=== PATIENT | female | born 1990 | race Hispanic/Latino ===

== ENCOUNTER 2016-12-10 05:55 | Emergency (ER) | payer MEDICAID ==
[2016-12-10 06:04] VITALS: BMI 33.2
[2016-12-10 06:09] VITALS: RESP 18
--- NOTE | 2016-12-10 07:34 | ED PDOC ---
Arrival/HPI - General Chief Complaint: Anxiety Time Seen by Provider: 12/10/16 06:06 Historian: Patient - History of Present Illness Narrative History of Present Illness (Text): 12/10/16 07:30 Patient is a 26 yo female reports past medical history of anxiety, not taking medication currently, presents to ED stating 2 day history of "tightness in my head NOT PAIN". States she "woke up with this 2 days ago. Denies chest pain or shortness of breath but states "its making me anxious" although she cannot be more descriptive of this and states she does not have chest pain or shortness of breath. Denies trauma. Denies fever. Denies numbness or weakness. Denies calf pain or swelling. Denies pleuritic chest pain. States she saw her PMD 2 days ago who prescribed her an unknown headache medication which she did not take. She states she went to [facility] ER 2 days ago and they gave her Reglan and Benadryl and she states this gave her no relief. Not a "headache". Denies congestion or sore throat or cough. Denies dental or neck pain. Denies facial swelling. States she had a CT scan of head at [facility] 2 days ago and states that "it was fine". She does not wish to take any medication for her symptoms stating she doesn't like to take medication. Denies suicidal or homicidal ideation. Past Medical History - Psychiatric Hx Substance Use: No Family/Social History Family/Social History: Unknown Family HX Smoking Status: y Hx Alcohol Use: No Hx Substance Use: No Allergies/Home Meds Allergies/Adverse Reactions: Allergies metoclopramide [From Reglan] Allergy (Verified 12/10/16 06:12) RASH Home Medications: Home Meds Medication Instructions Recorded Confirmed No Known Home Med 12/10/16 12/10/16 Review of Systems - Review of Systems Constitutional: absent: Fatigue, Fevers Eyes: absent: Vision Changes, Photophobia, Eye Pain ENT: absent: Hearing Changes Respiratory: absent: SOB Cardiovascular: absent: Chest Pain, Palpitations Gastrointestinal: absent: Abdominal Pain Genitourinary Female: absent: Dysuria, Frequency, Hematuria Musculoskeletal: absent: Back Pain, Neck Pain Skin: absent: Rash Neurological: Other (head "pressure"). absent: Dizziness, Focal Weakness, Gait Changes, Speech Changes, Facial Droop, Seizure Psychiatric: Anxiety. absent: Depression, Suicidal Ideation Physical Exam - Physical Exam Narrative Physical Exam (Text): Head: Atraumatic. Normocephalic. Eyes: PERRL. EOMI. Conjunctivae are not pale. ENT: Mucous membranes are moist and intact. Oropharynx is clear and symmetric. Neck: Supple. Full ROM. No JVD. No lymphadenopathy. Cardiovascular: Regular rate. Regular rhythm. No murmurs, rubs, or gallops. Distal pulses are 2+ and symmetric. Pulmonary/Chest: No evidence of respiratory distress. Clear to auscultation bilaterally. No wheezing, rales or rhonchi. Abdominal: Soft and non-distended. There is no tenderness. No rebound, guarding, or rigidity. No organomegaly. Good bowel sounds. Back: No CVA tenderness. Extremities: No edema. No cyanosis. No clubbing. Full range of motion in all extremities. No calf tenderness. Skin: Skin is warm and dry. No petechiae. No purpura. Neurological: Alert, awake, and oriented to person, place, time, and situation. Normal speech. Psychiatric: Good eye contact. Normal interaction, affect, and behavior. Vital Signs Reviewed: Yes Vital Signs Temp Pulse Resp BP Pulse Ox 12/10/16 09:00 98 F 63 18 123/73 100 12/10/16 07:48 61 18 115/63 100 12/10/16 06:05 97.3 F L 74 18 120/68 99 Temperature: Afebrile Appearance: Positive for: Well-Appearing, Non-Toxic Pain Distress: Mild Mental Status: Positive for: Alert and Oriented X 3 Medical Decision Making ED Course and Treatment: Patient on examination is alert, oriented, denies suicidal or homicidal ideation but reports anxiety and difficulty sleeping for past two days. No trauma. No fever. She reports negative ct scan of head at [facility] two days ago. No thyromegaly noted. NO fever noted. No hypoxia. No chest pain. No calf pain. No prior hx of PE or dvt. No pleuritic discomfort. She insists she does not have "headache" but "tightness". No facial edema or facial droop noted. Visual acuity and visual allen intact. She states PMD prescribed medication she did not take. She does not wish to take tylenol or motrin after I reviewed risks/side effects and indications. She is neurologically intact after serial exams. PES consulted due to anxiety, patient reports to PES that she does not wish to be admitted for mental health reasons, patient confirms no suicidal or homicidal ideation. She subsequently is agreeable to take a xanax in ED, I again reviewed potential side effects. As no pain, neuro intact, no fever, no respiratory distress, no psychosis or suicidal/homicidal ideation, will discharge with recommendations provided by PES personnel, follow-up instructions given to patient. Please note patient adamantly denies shortness of breath to me despite triage chief complaint. She has been examined multiple times in ED with no complaint of SOB, no hypoxia, no chest pain, no wheezing. - Lab Interpretations Lab Results: 12/10/16 07:45 12/10/16 07:45 Lab Results 12/10/16 07:45: Alcohol, Quantitative < 10 12/10/16 07:45: Salicylates < 1 L, Acetaminophen < 10.0 L 12/10/16 07:45: Sodium 135, Potassium 3.8, Chloride 104, Carbon Dioxide 24, Anion Gap 11, BUN 11, Creatinine 0.6, Est GFR ( Amer) > 60, Est GFR (Non- Af Amer) > 60, Random Glucose 84, Calcium 9.2, Total Bilirubin 1.1, AST 20, ALT 25, Alkaline Phosphatase 62, Total Creatine Kinase 90, Total Protein 7.6, Albumin 4.3, Globulin 3.2, Albumin/Globulin Ratio 1.3 12/10/16 07:45: WBC 8.1, RBC 4.69, Hgb 14.6, Hct 42.2, MCV 90.0, MCH 31.1, MCHC 34.6, RDW 12.4, Plt Count 293, MPV 9.9, Gran % 50.9, Lymph % (Auto) 38.4 H, [place] % (Auto) 7.7 H, Eos % (Auto) 2.6, Baso % (Auto) 0.4, Gran # 4.10, Lymph # 3.1, [place] # 0.6, Eos # 0.2, Baso # 0.03 12/10/16 07:37: Urine Opiates Screen Negative, Urine Methadone Screen Negative, Ur Barbiturates Screen Negative, Ur Phencyclidine Scrn Negative, Ur Amphetamines Screen Negative, U Benzodiazepines Scrn Negative, U Oth Cocaine Metabols Negative, U Cannabinoids Screen Negative 12/10/16 07:37: Urine Color Yellow, Urine Appearance Clear, Urine pH 7.0, Ur Specific [place] <= 1.005, Urine Protein Negative, Urine Glucose (UA) Negative, Urine Ketones Negative, Urine Blood Negative, Urine Nitrate Negative, Urine Bilirubin Negative, Urine Urobilinogen 0.2, Ur Leukocyte Esterase Negative, Urine HCG, Qual Negative - Medication Orders Current Medication Orders: Discontinued Medications Alprazolam (Xanax) 0.25 mg PO STAT STA Stop: 12/10/16 09:08 Last Admin: 12/10/16 09:31 Dose: 0.25 mg Disposition/Present on Arrival - Present on Arrival Any Indicators Present on Arrival: No History of DVT/PE: No History of Uncontrolled Diabetes: No Urinary Catheter: No History of Decub. Ulcer: No History Surgical Site Infection Following: None - Disposition Have Diagnosis and Disposition been Completed?: Yes Diagnosis: Anxiety Disposition: HOME/ ROUTINE Disposition Time: 10:00 Patient Plan: Discharge Condition: GOOD Discharge Instructions (ExitCare): Anxiety (ED) Additional Instructions: Follow-up with your therapist as directed. For any persistent head discomfort, any fever, any visual symptoms, any numbness or weakness, any neck pain, any fever, any shortness of breath, any abdominal pain, any nausea or vomiting, get rechecked. Referrals: Vee Balderrama APN [Primary Care Provider] - Follow up with primary
[2016-12-10 07:52] VITALS: O2SAT 100
[2016-12-10 07:55] LABS: ADD MANUAL DIFF? NO
[2016-12-10 07:56] LABS: URINE BILIRUBIN NEGATIVE (NEGATIVE); URINE BLOOD NEGATIVE (NEGATIVE); URINE GLUCOSE (UA) NEGATIVE (NEGATIVE); URINE KETONE NEGATIVE (NEGATIVE); URINE LEUKOCYTE ESTERASE NEGATIVE Leu/uL (NEGATIVE); URINE PROTEIN NEGATIVE mg/dL (<30 mg/dL); URINE UROBILINOGEN 0.2 E.U./dL (<1 E.U./dL)
[2016-12-10 08:05] LABS: URINE APPEARANCE CLEAR (CLEAR); URINE COLOR YELLOW (YELLOW)
[2016-12-10 08:15] LABS: BASO # 0.03 K/mm3 (0.0-2.0); BASO % 0.4 % (0.0-3.0); EOS # 0.2 (0.0-0.7); EOS % 2.6 % (1.5-5.0); GRAN % 50.9 % (50.0-68.0); HEMATOCRIT 42.2 % (36.0-48.0); LYMPH # 3.1 (1.2-3.4); LYMPH % 38.4 % (22.0-35.0); MEAN CORPUSCULAR HEMOGLOBIN 31.1 pg (25.0-35.0); MEAN CORPUSCULAR HGB CONC 34.6 g/dl (31.0-37.0); MEAN PLATELET VOLUME 9.9 fl (7.0-11.0); MONO # 0.6 (0.1-0.6); MONO % 7.7 % (1.0-6.0); PLATELET COUNT 293 10^3/uL (120.0-450.0); RED CELL DISTRIBUTION WIDTH 12.4 % (11.5-14.5); WHITE BLOOD COUNT 8.1 10^3/ul (4.5-11.0)
[2016-12-10 08:18] LABS: ALB/GLOB RATIO 1.3 (1.1-1.8); ALKALINE PHOSPHATASE 62 U/L (38-133); ALT/SGPT 25 U/L (7-56); AST/SGOT 20 U/L (15-39); BILIRUBIN,TOTAL 1.1 mg/dL (0.2-1.3); BLOOD UREA NITROGEN 11 mg/dL (7-21); CALCIUM 9.2 mg/dL (8.4-10.5); CARBON DIOXIDE 24 mmol/L (21-33); CHLORIDE 104 mmol/L (98-107); GFR AFRICAN-AMERICAN > 60; GLUCOSE,RANDOM 84 mg/dL (70-110); POTASSIUM 3.8 mmol/L (3.6-5.0); SODIUM 135 mmol/L (132-148); TOTAL PROTEIN 7.6 g/dL (5.8-8.3)
[2016-12-10 09:36] VITALS: BP 123/73; PULSE 63; TEMP 98
--- NOTE | 2016-12-10 16:19 | CARD ---
APPROVED REPORT EKG Measurement Heart [id number] ID [id number] <Conclusion> Normal sinus rhythm Cannot rule out Anterior infarct, age undetermined Abnormal ECG
== END 2016-12-10 09:36 | disposition home or self-care (01) ==
LOC: ED 05:55 → MERGE 05:55 → ED 09:36
DX: F41.9 Anxiety disorder, unspecified (principal)